=== PATIENT | female | born 1995 ===

== ENCOUNTER 2017-03-28 10:28 | Emergency (ER) | payer BC, MEDICAID, OTHER ==
[2017-03-28 11:46] VITALS: BP 103/68; PULSE 69; RESP 18; TEMP 98.8; O2SAT 97
--- NOTE | 2017-03-28 11:49 | C.PDOC ---
History Of Present Illness I went to see the patient as soon as I signed up for her, however I could not find her. I was informed by the staff that the pt has left before being seen. Time Seen by Provider: 03/28/17 11:37 Chief Complaint (Nursing): Dental Pain Past Medical History Vital Signs: Last Vital Signs Temp 98.8 F 03/28/17 11:00 Pulse 69 03/28/17 11:00 Resp 18 03/28/17 11:00 BP 103/68 03/28/17 11:00 Pulse Ox 97 03/28/17 11:00 Family History: States: Unknown Family Hx - Social History Hx Tobacco Use: No Hx Alcohol Use: No Hx Substance Use: No - Immunization History Hx Tetanus Toxoid Vaccination: No Hx Influenza Vaccination: No Hx Pneumococcal Vaccination: No ED Course And Treatment O2 Sat by Pulse Oximetry: 97 Disposition - Disposition Disposition: LEFT W/O BEING SEEN - ER ONLY Disposition Time: 11:40 Condition: UNKNOWN - Clinical Impression Clinical Impression: Patient left without being seen
== END 2017-03-28 11:49 | disposition left against medical advice (07) ==
LOC: C.ER 10:28
DX: Z02.89 Encounter for other administrative examinations (principal); K08.89 Other specified disorders of teeth and supporting structures